=== PATIENT | male | born 1950 | race Hispanic/Latino ===

== ENCOUNTER 2017-11-21 15:05 | Emergency (ER) | payer MEDICARE ==
[~2017-11-21] VITALS: Ht 170.2 cm; Wt 59.0 kg
[2017-11-21] MEDS ORDERED: ALBUTEROL SULF 0.083% NEB SOLN 3 ML NEB NEB STA (15:06)
[2017-11-21] MEDS ORDERED: IPRATROPIUM BROMIDE 0.02% 2.5 ML NEB NEB STA (15:06)
--- OUTSIDE RECORDS SUMMARY | 2017-11-21 15:07 | XMS REPORT | Clinical Summary ---
Author Author [facility] Address Unknown Phone Unavailable Care Team Providers Care Manager Cardiac Name Role Phone Chris Romero MD PCP Allergies Active Allergy Reactions Severity Noted Date Comments Sulfamethoxazole-Trimetho 06/02/2016 prim Current Medications Prescription Sig. Disp. Refills Start End Date Status Date aceitlvbt-unqqycme-xicwbd TAKE 1 TABLET BY MOUTH 5 6 05/22/20 Active pone (STALEVO) 25-100-200 TIMES A DAY 16 mg per tablet carbidopa-levodopa Take 1 tablet by mouth 5 3 05/18/20 Active (SINEMET) 25-100 mg per (five) times a day. 16 tablet quinapril (ACCUPRIL) 5 MG Take 5 mg by mouth once 3 03/13/20 Active tablet daily. 16 tamsulosin (FLOMAX) 0.4 Take 0.4 mg by mouth 3 05/20/20 Active mg capsule,extended nightly. 16 release 24hr rOPINIRole XL (REQUIP XL) Take 4 tablets (8 mg 120 tablet 11 03/05/20 03/05/20 Active 2 MG 24 hr tablet total) by mouth nightly. 17 18 Start 1 pill daily for 1 week, then increase as instructed up to 4 pills daily Active Problems Not on file Encounters Date Type Specialty Care Team Description 03/05/2017 Office Visit Neurology Ivory Vila MD Parkinson's disease (Primary Dx); Abnormal gait; Anxiety 02/12/2017 Emergency Emergency Medicine Roge Vega Parkinson's disease MD Eduardo (Primary Dx); Other dysphagia after 11/20/2016 Family History Medical History Relation Name Comments No Known Problems Father Stomach cancer Mother Relation Name Status Comments Father Mother Social History Tobacco Use Types Packs/Day Years Used Date Never Smoker Alcohol Use Drinks/Week oz/Week Comments No Sex Assigned at Date Recorded Not on file Last Filed Vital Signs Vital Sign Reading Time Taken Blood Pressure 180/75 03/05/2017 3:22 PM CDT Pulse 69 03/05/2017 3:22 PM CDT Temperature 36.5 C (97.7 F) 02/12/2017 4:11 PM CDT Respiratory Rate 20 02/12/2017 6:00 PM CDT Oxygen Saturation 97% 02/12/2017 11:30 PM CDT Inhaled Oxygen - - Concentration Weight 62.1 kg (137 lb) 03/05/2017 3:22 PM CDT Height 170.2 cm (5' 7") 03/05/2017 3:22 PM CDT Body Mass Index 21.46 03/05/2017 3:22 PM CDT Plan of Treatment Health Maintenance Due Date Last Done Comments COLONOSCOPY 1998 SHINGRIX VACCINE (#1) 1998 ZOSTER VACCINE 2008 PNEUMOCOCCAL 2013 POLYSACCHARIDE VACCINE AGE 65 AND OVER PNEUMOCOCCAL-13 2013 INFLUENZA VACCINE 02/24/2018 Results * CT Head Wo Contrast (02/12/2017 10:49 PM) Specimen Performing Laboratory [address] [address] Narrative EXAM: CT HEAD WO CONTRAST CLINICAL HISTORY: Dysphagia TECHNIQUE: Noncontrast enhanced images of the brain were obtained from the skull base to the vertex. Both soft tissue and bone reconstruction algorithms were performed. CT scans are performed using radiation dose reduction techniques (iterative reconstruction and/or automated exposure control). Technical factors are evaluated and adjusted to ensure appropriate moderation of exposure. Automated dose management technology is applied to adjust radiation exposure while achieving a diagnostic quality image. COMPARISON:None. FINDINGS: Sulci and ventricles are prominent from age-related parenchymal volume loss. In addition, there is scattered subcortical and deep white matter hypoattenuation, likely reflective of chronic small vessel ischemic changes. The arriaga-white matter differentiation is preserved and without evidence of acute territorial infarction. There is no evidence for acute intracranial hemorrhage, mass, mass effect, hydrocephalus, or extra-axial fluid collection. Orbits are unremarkable.Paranasal sinuses are clear.Mastoid air cells are normally pneumatized. Small subcutaneous lipoma noted overlying the left medial occipital calvarium. Osseous structures are intact. Vascular calcifications are noted, most prominent within the bilateral cavernous ICAs. IMPRESSION: Involutional changes as detailed with no CT evidence for acute intracranial abnormality. [facility]-[id number] Procedure Note [facility], Radiology Results Incoming - 02/12/2017 10:55 PM CDT EXAM: CT HEAD WO CONTRAST CLINICAL HISTORY: Dysphagia TECHNIQUE: Noncontrast enhanced images of the brain were obtained from the skull base to the vertex. Both soft tissue and bone reconstruction algorithms were performed. CT scans are performed using radiation dose reduction techniques (iterative reconstruction and/or automated exposure control). Technical factors are evaluated and adjusted to ensure appropriate moderation of exposure. Automated dose management technology is applied to adjust radiation exposure while achieving a diagnostic quality image. COMPARISON: None. FINDINGS: Sulci and ventricles are prominent from age-related parenchymal volume loss. In addition, there is scattered subcortical and deep white matter hypoattenuation, likely reflective of chronic small vessel ischemic changes. The arriaga-white matter differentiation is preserved and without evidence of acute territorial infarction. There is no evidence for acute intracranial hemorrhage, mass, mass effect, hydrocephalus, or extra-axial fluid collection. Orbits are unremarkable. Paranasal sinuses are clear. Mastoid air cells are normally pneumatized. Small subcutaneous lipoma noted overlying the left medial occipital calvarium. Osseous structures are intact. Vascular calcifications are noted, most prominent within the bilateral cavernous ICAs. IMPRESSION: Involutional changes as detailed with no CT evidence for acute intracranial abnormality. [facility]-[id number] * Bedside glucose (02/12/2017 8:31 PM) Component Value Ref Range POC glucose 127 Specimen Performing Laboratory Blood * POC glucose (02/12/2017 8:22 PM) Component Value Ref Range POC glucose 127 (H) 65 - 99 mg/dL Comment: [facility] Notified RN Meter ID: [id number] Associate Professor Of Medicine: Bryn Lopez Specimen Performing Laboratory [facility] DEPARTMENT OF PATHOLOGY AND GENOMIC MEDICINE [address] [place] [address] * Estimated GFR (02/12/2017 5:14 PM) Component Value Ref Range GFR Non Af Amer >90 mL/min/1.73 m2 GFR Af Amer >90 mL/min/1.73 m2 Comment: Chronic kidney disease: <60 mL/min/1.73m2 Kidney failure: <15 mL/min/1.73m2 The estimated GFR is calculated from the IDMS-traceable Modification of Diet in Renal Disease Equation. The accuracy of the calculation is poor when the creatinine is normal. Calculated values >90 mL/min/1.73m2 are not reported. This equation has not been validated in children (<18 years), women, the elderly (>70 years), or ethnic groups other than Caucasians and Americans. Specimen Performing Laboratory Plasma specimen [facility] DEPARTMENT OF PATHOLOGY AND GENOMIC MEDICINE [address] [place] [id number] * Troponin (02/12/2017 5:14 PM) Component Value Ref Range Troponin <0.30 0.00 - 0.30 ng/mL Comment: 0.30 - 1.49 ng/ml May indicate increased risk of acute coronary syndrome. >=1.5 ng/ml Consistent with acute myocardial infarction. The diagnostic value of a single normal or non-diagnostic result is questionable. Serial samples at 2-6 hour intervals are required to rule out acute myocardial injury. Specimen Performing Laboratory Plasma specimen [facility] DEPARTMENT OF PATHOLOGY AND [facility] MEDICINE [address] [place] [address] * Partial thromboplastin time, activated (02/12/2017 5:14 PM) Component Value Ref Range PTT 33.1 23.0 - 36.0 sec Comment: PTT therapeutic range for unfractionated heparin is 61.0-112.0 seconds which corresponds to Anti-Xa 0.3-0.7 U/ml. Specimen Performing Laboratory Blood [facility] DEPARTMENT OF PATHOLOGY AND [address] [address] * Prothrombin time with INR (02/12/2017 5:14 PM) Component Value Ref Range Prothrombin time 15.0 12.0 - 15.0 sec INR 1.2 Comment: The International Normalized Ratio (INR) is a therapeutic monitoring tool for patients who are stable on oral anticoagulant therapy. An INR of 2.0-3.0 is suggested for deep vein thrombosis/pulmonary embolism. Specimen Performing Laboratory Blood [facility] DEPARTMENT OF PATHOLOGY AND [facility] MEDICINE [address] [place] [address] * CBC with platelet and differential (02/12/2017 5:14 PM) Component Value Ref Range WBC 8.13 4.50 - 11.00 k/uL RBC 3.83 (L) 4.40 - 6.00 m/uL HGB 12.8 (L) 14.0 - 18.0 g/dL HCT 36.7 (L) 41.0 - 51.0 % MCV 95.8 82.0 - 100.0 fL MCH 33.4 27.0 - 34.0 pg MCHC 34.9 31.0 - 37.0 g/dL RDW - SD 42.7 37.0 - 55.0 fL MPV 10.9 8.8 - 13.2 fL Platelet count 192 150 - 400 k/uL Nucleated RBC 0.00 /100 WBC Neutrophils 85.5 (H) 39.0 - 69.0 % Lymphocytes 6.9 (L) 25.0 - 45.0 % Monocytes 5.7 0.0 - 10.0 % Eosinophils 0.7 0.0 - 5.0 % Basophils 0.6 0.0 - 1.0 % Immature granulocytes 0.6Comment: "Immature granulocytes" 0.0 - 1.0 % (promyelocytes, myelocytes, metamyelocytes) Specimen Performing Laboratory Blood [facility] DEPARTMENT OF PATHOLOGY AND [email or web address] MEDICINE [address] [place] [address] * Comprehensive metabolic panel (02/12/2017 5:14 PM) Component Value Ref Range Sodium 143 135 - 148 mEq/L Potassium 3.7 3.5 - 5.0 mEq/L Chloride 102 98 - 112 mEq/L CO2 28 24 - 31 mEq/L Anion gap 13 7 - 15 mEq/L Comment: Starting from October , anion gap calculation no longer incorporates potassium. Please note the change. BUN 16 8 - 23 mg/dL Creatinine 0.8 0.7 - 1.2 mg/dL Glucose 119 (H) 65 - 99 mg/dL Calcium 9.5 8.8 - 10.2 mg/dL Protein 7.3 6.3 - 8.3 g/dL Comment: 4.6-7.0 g/dL 1 week 4.4-7.6 g/dL 7 months-1year 5.1-7.3 g/dL 1-2 years 5.6-7.5 g/dL >3 years 6.0-8.0 g/dL 18-150 6.3-8.3 g/dL Albumin 4.0 3.5 - 5.0 g/dL A/G ratio 1.2 0.7 - 3.8 Alkaline phosphatase 72 40 - 129 U/L AST 20 10 - 50 U/L ALT <5 (A) 5 - 50 U/L Total bilirubin 0.6 0.0 - 1.2 mg/dL Specimen Performing Laboratory Plasma specimen [facility] DEPARTMENT OF PATHOLOGY AND [email or web address] MEDICINE [address] [place] [address] [place] [address] after 11/20/2016 Insurance Payer Benefit Subscriber ID Type Phone Address Plan / Group [employer] CIGNA xxxxxxxx [facility]V
[2017-11-21 17:06] LABS: BASOPHILS % 0.4 % (0.0-1.0); EOSINOPHILS % 0.5 % (0.0-6.0); HEMATOCRIT 35.5 % (38.2-49.6); HEMOGLOBIN 12.8 g/dL (14.0-18.0); LYMPHOCYTES # (AUTO) 0.6 (1.0-3.2); LYMPHOCYTES % 7.7 % (18.0-39.1); MEAN CORPUSCULAR HEMOGLOBIN 33.4 pg (28-32); MEAN CORPUSCULAR HGB CONC 36.1 g/dL (31-35); MEAN CORPUSCULAR VOLUME 92.7 fL (81-99); MONOCYTES # (AUTO) 0.4 (0.2-0.8); MONOCYTES % 5.5 % (4.4-11.3); NEUTROPHILS # (AUTO) 6.6 (2.1-6.9); NEUTROPHILS % 85.5 % (38.7-80.0); PLATELET COUNT 212 x10e3/uL (140-360); RED BLOOD COUNT 3.83 x10e6/uL (4.3-5.7); RED CELL DISTRIBUTION WIDTH 12.1 % (11.7-14.4)
--- NOTE | 2017-11-21 17:14 | Diagnostic Imaging Report ---
EXAMINATION: Chest, CHEST SINGLE (PORTABLE) INDICATION: Chest pain COMPARISON: None FINDINGS: LINES: None. Heart: Normal cardiac silhouette. Vascular: The pulmonary vasculature is within normal limits. Atherosclerotic calcifications of the aortic arch. Mediastinum: No mediastinal, hilar, or axillary mass or lymphadenopathy. Lungs: No parenchymal mass. No focal consolidation. Pleura: No pleural effusion. No pneumothorax. Bones: No acute osseous abnormality. Degenerative changes of the thoracic spine. Soft tissues: Normal. Impression: No acute radiographic abnormality. Signed by: Dr. Shad Bonilla M.D. on 11/21/2017 5:10 PM
[2017-11-21 17:16] LABS: INR 1.13; PROTHROMBIN TIME 13.6 seconds (11.9-14.5)
[2017-11-21 17:17] LABS: PARTIAL THROMBOPLASTIN TIME 33.6 seconds (23.8-35.5)
[2017-11-21 17:25] LABS: ALANINE AMINOTRANSFERASE 6 IU/L (0-55); ALBUMIN 4.1 g/dL (3.5-5.0); ALBUMIN/GLOBULIN RATIO 1.3 (0.8-2.0); ALKALINE PHOSPHATASE 63 IU/L (40-150); ANION GAP 15.4 mmol/L (8-16); BLOOD UREA NITROGEN 15 mg/dL (7-26); BUN/CREATININE RATIO 19 (6-25); CALCIUM 9.7 mg/dL (8.4-10.2); CARBON DIOXIDE 27 mmol/L (22-29); CHLORIDE 103 mmol/L (98-107); CREATINE KINASE 60 IU/L (30-200); CREATININE, SERUM 0.79 mg/dL (0.72-1.25); EST GLOMERULAR FILTRATION RATE > 60 ML/MIN (60-); GLUCOSE 131 mg/dL (74-118); POTASSIUM 3.4 mmol/L (3.5-5.1); SODIUM 142 mmol/L (136-145)
[2017-11-21 17:44] LABS: THYROID STIMULATING HORMONE 0.954 uIU/mL (0.350-4.940)
[2017-11-21 19:07] VITALS: BP 158/84
[2017-11-21 20:13] LABS: CLARITY,URINE CLEAR (CLEAR); COLOR,URINE YELLOW (YELLOW)
[2017-11-21 20:14] LABS: LEUKOCYTE ESTERASE ,URINE NEGATIVE (NEGATIVE)
[2017-11-21 20:15] LABS: BILIRUBIN,URINE NEGATIVE (NEGATIVE); KETONES,URINE 1+ (NEGATIVE); NITRITE,URINE NEGATIVE (NEGATIVE); PROTEIN,URINE DIPSTICK 1+ (NEGATIVE); URINE UROBILINOGEN 0.2 mg/dL (0.2 - 1)
[2017-11-21 21:30] LABS: RBC,URINE 0-5 /HPF (0-5); WBC,URINE (MAN) 0-5 /HPF (0-5)
[2017-11-21 21:31] LABS: AMORPHOUS SEDIMENT,URINE FEW (FEW); BACTERIA,URINE RARE /HPF; EPITHELIAL CELLS,URINE RARE /LPF
== END 2017-11-21 19:10 | disposition home or self-care (01) ==
LOC: ER 15:05
DX: R06.02 Shortness of breath (principal); I10 Essential (primary) hypertension; G20 Parkinson's disease; Z85.038 Personal history of other malignant neoplasm of large intestine
CPT/HCPCS: 36415; 71045; 80053; 81001; 82550; 82553; 83880; 84443; 84484; 85025; 85610; 85730; 87086; 93005; 94640; 99284

== ENCOUNTER 2019-01-28 03:30 | Emergency (ER) | payer MEDICARE ==
[~2019-01-28] VITALS: Ht 170.2 cm; Wt 59.0 kg
--- OUTSIDE RECORDS SUMMARY | 2019-01-28 03:32 | XMS REPORT ---
Author [facility] Address Unknown Phone Unavailable Care Team Providers Care Water Ski Assembler Name Role Phone Weston FOX Unavailable Unavailable Problems This patient has no known problems. Allergies, Adverse Reactions, Alerts This patient has no known allergies or adverse reactions. Medications This patient has no known medications. Results Test Description Test Time Test Comments Text Results Atomic Results Result Comments CHEST SINGLE (PORTABLE) [place] [address] Patient Name: IDA COLE MR #: [id number] : 1950 Age/Sex: 67/M Req #: [id number] Adm Physician: Ordered by: MIRIAM SOLANO [employer] CONSULTANT Report #: [id number] Location: ER Room/Bed: Procedure: [id number] DX/CHEST SINGLE (PORTABLE) Exam Date: 11/21/17 Exam Time: 1625 REPORT STATUS: Signed EXAMINATION: Chest, CHEST SINGLE (PORTABLE) INDICATION: Chest pain COMPARISON: None FINDINGS: LINES: None. Heart: Normal cardiac silhouette. Vascular: The pulmonary vasculature is within normal limits. Atherosclerotic calcifications of the aortic arch. Mediastinum: No mediastinal, hilar, or axillary mass or lymphadenopathy. Lungs: No parenchymal mass. No focal consolidation. Pleura: No pleural effusion. No pneumothorax. Bones: No acute osseous abnormality. Degenerative changes of the thoracic spine. Soft tissues: Normal. Impression: No acute radiographic abnormality. Signed by: Dr. Cassidy Castillo M.D. on 11/21/2017 5:10 PM Dictated By: CASSIDY CASTILLO MD 09 Transcribed By: MEG on 11/21/171709 COPY TO: MIRIAM SOLANO NP
--- OUTSIDE RECORDS SUMMARY | 2019-01-28 03:32 | XMS REPORT | Clinical Summary ---
Author Author [facility] Address Unknown Phone Unavailable Care Team Providers Care Remote Inpatient Coder Name Role Phone Lino Romero MD PCP Allergies Comments Active Allergy Reactions Severity Noted Date Sulfamethoxazole-Trimetho 06/02/2016 prim Medications End Date Status Medication Sig Dispensed Refills Start Date Active vwsrybfct-jdhlctvw-ohpwmk TAKE 1 TABLET 6 pone (STALEVO) 25-100-200 BY MOUTH 5 6 mg per tablet TIMES A DAY Active carbidopa-levodopa Take 1 tablet 3 (SINEMET) 25-100 mg per by mouth 5 6 tablet (five) times a day. Active quinapril (ACCUPRIL) 5 MG Take 5 mg by 3 tablet mouth once 6 daily. Active tamsulosin (FLOMAX) 0.4 Take 0.4 mg 3 mg capsule,extended by mouth 6 release 24hr nightly. 03/05/2018 rOPINIRole XL (REQUIP XL) Take 4 120 tablet 11 2 MG 24 hr tablet tablets (8 mg 7 total) by mouth nightly. Start 1 pill daily for 1 week, then increase as instructed up to 4 pills daily Active Problems Not on file Family History Medical History Relation Name Comments No Known Problems Father Stomach cancer Mother Relation Name Status Comments Father Mother Social History Date Tobacco Use Types Packs/Day Years Used Never Smoker Alcohol Use Drinks/Week oz/Week Comments No Sex Assigned at Date Recorded Not on file Industry Job Start Date Occupation Not on file Not on file Not on file Travel End Travel History Travel Start No recent travel history available. Last Filed Vital Signs Not on file Plan of Treatment Health Maintenance Due Date Last Done Comments COLONOSCOPY SCREENING 1998 SHINGLES VACCINES (#1) 1998 65+ PNEUMOCOCCAL VACCINE 2013 (1 of 2 - PCV13) INFLUENZA VACCINE 02/24/2019 Results Not on fileafter 01/27/2018 Insurance Type Payer Benefit Subscriber ID Effective Phone Address Plan / Dates Group HMO [employer] CIGNA xxxxxxxx 2016-P [facility] Advance Directives Patient has advance care planning documents on file. For more information, araceli e contact: Christopher Atkinson [address] [place] [address]
== END 2019-01-28 04:00 | disposition left against medical advice (07) ==
LOC: ER 03:30
DX: R53.1 Weakness (principal)